=== PATIENT | female | born 1960 | race Caucasian/White ===

== ENCOUNTER 2019-03-22 07:47 | Emergency (ER) | payer OTHER ==
[~2019-03-22] VITALS: Ht 167.6 cm; Wt 86.2 kg
[~2019-03-22 07:47] MED LIST: CALMAGZIN PO; DIAZ5 PO; FLAX PO; MULVITMINE PO; NAPR500 PO; ZOLP5 PO
[2019-03-22] MEDS ORDERED: MELO7.5 PO (08:08)
[2019-03-22] MEDS ORDERED: CENTRUM SILVER1 EAC2 PO (08:08)
[2019-03-22] MEDS ORDERED: Oyster Shell C500 MG (08:08)
[2019-03-22] MEDS ORDERED: FLAX OIL1000 MG PO (08:09)
== END 2019-03-22 09:25 | disposition home or self-care (01) ==
LOC: ER 07:47
DX: S80.212A Abrasion, left knee, initial encounter (principal); Z88.4 Allergy status to anesthetic agent; Z79.899 Other long term (current) drug therapy; Z79.891 Long term (current) use of opiate analgesic; W01.10XA Fall on same level from slipping, tripping and stumbling with subsequent striking against unspecified object, initial encounter
CPT/HCPCS: 73564; 99283-25

== ENCOUNTER → 2023-01-11 | Outpatient (CLI) | payer OTHER ==
[~2023-01-11] MED LIST changes: +CENTRUM SILVER1 EAC2 PO; +FLAX OIL1000 MG PO; +MELO7.5 PO; +Oyster Shell C500 MG
[2023-01-11 10:48] LABS: BASOPHILS ABSOLUTE AUTO 0.06 K/mm3 (0.00-0.23); BASOPHILS PERCENT AUTO 1 % (0-2); EOSINOPHILS ABSOLUTE AUTO 0.14 K/mm3 (0.00-0.68); EOSINOPHILS PERCENT AUTO 2 % (0-6); Hematocrit 44.1 % (33.0-51.0); Hemoglobin 15.3 g/dL (11.5-16.0); IMMATURE GRAN ABSOLUTE AUTO 0.01 K/mm3 (0.00-0.10); IMMATURE GRAN PERCENT AUTO 0 % (0-1); LYMPHOCYTES PERCENT AUTO 31 % (21-46); MONOCYTES ABSOLUTE AUTO 0.49 K/mm3 (0.16-1.47); MONOCYTES PERCENT AUTO 8 % (4-13); Mean Corpuscular HGB 30.2 pg (26.0-34.0); Mean Corpuscular HGB Conc 34.7 g/dL (31.5-36.5); Mean Corpuscular Volume 87 fL (80-100); Mean Platelet Volume 11.2 fL (9.1-12.4); NEUTROPHILS ABSOLUTE AUTO 3.61 K/mm3 (1.96-9.15); NEUTROPHILS PERCENT AUTO 58 % (41-73); Platelet Count 224 K/mm3 (150-400); RDW Coefficient Variation 12.7 % (11.7-14.2); Red Blood Cell Count 5.07 M/mm3 (3.80-5.20); White Blood Cell Count 6.21 K/mm3 (4.00-11.30)
[2023-01-11 11:12] LABS: Albumin, Blood 4.4 g/dL (3.4-5.0); Albumin/Globulin Ratio 1.2 (0.8-1.8); Bilirubin, Total 0.6 mg/dL (0.1-1.0); Calcium, Blood 9.6 mg/dL (8.5-10.1); Creatinine, Blood 0.7 mg/dL (0.40-1.00); Globulin, Blood 3.7 g/dL (2.2-4.0); Potassium, Blood 3.7 mmol/L (3.5-5.5); Total Protein, Blood 8.1 g/dL (6.4-8.2)
== END | disposition home or self-care (01) ==
LOC: LAB SHORT 10:44 → LAB 10:44
PROVIDERS: Physician Assistant
DX: R07.9 Chest pain, unspecified (principal)
CPT/HCPCS: 80053; 83690; 84484; 85025

== ENCOUNTER 2023-11-18 07:32 | Day surgery (SDC) | payer BC ==
[~2023-11-18] VITALS: Ht 167.6 cm; Wt 72.8 kg
[~2023-11-18 07:32] MED LIST changes: +EPINEPhrine HCl 1 MG / ML 30ML Vial ONE; +Lactated Ringer's 1,000 ML IV ONE; +Ropivacaine 0.5% HCl/Pf 5 MG/ML 20ML VIAL ONE
[2023-11-18] MEDS ORDERED: NS 50 ML IV ONE (07:35)
[2023-11-18] MEDS ORDERED: CeFAZolin Sodium 2,000 MG VIAL ONE (07:35)
[2023-11-18] MEDS ORDERED: Lactated Ringer's 1,000 ML IV ONE ×2 (08:10→09:53)
[2023-11-18] MEDS ORDERED: Sugammadex Sodium 200 MG/2ML SDV (100 MG/ML) ONE (09:18)
[2023-11-18] MEDS ORDERED: Rocuronium Bromide 10 MG/ML 5ML Injection IV ONE (09:18)
[2023-11-18] MEDS ORDERED: Ondansetron HCl 2 MG / ML 2ML Vial ONE (09:18)
[2023-11-18] MEDS ORDERED: propofoL 20 ML IV ONE (09:18)
[2023-11-18] MEDS ORDERED: FentaNYL Citrate 50 MCG/ML 2 ML Injection ONE (09:18)
[2023-11-18] MEDS ORDERED: Dexamethasone Sod Phos 10 MG/ML 1ML VIAL ONE (09:18)
[2023-11-18] MEDS ORDERED: EPINEPhrine HCl 1 MG/ML 1ML Amp XX ONE (09:36)
--- NOTE | 2023-11-18 09:41 | NUR ---
11/18/23 0941 Jim Arteaga ROPIVACAINE 0.5% 30 ML MIXED & VERIFIED W/ EPI 0.15ML (1MG/ML) TO MAKE ROPIVACAINE 0.5% 1:200,000 FOR INJECTION AT [facility] BY DR WEST.
[2023-11-18 11:01] VITALS: BP 148/80
--- NOTE | 2023-11-18 11:35 | NUR ---
11/18/23 1135 SHANNON MCNEIL PT DECLINED ANY PAIN MEDICATION
== END 2023-11-18 11:28 | disposition home or self-care (01) ==
LOC: ORSCSDS 07:32
PROVIDERS: Podiatrist Foot & Ankle Surgery
PROC: 0QPH04Z Removal of Internal Fixation Device from Left Tibia, Open Approach (ICD-10-PCS; principal; 2023-11-18 08:45)
DX: M19.172 Post-traumatic osteoarthritis, left ankle and foot (principal); T84.84XA Pain due to internal orthopedic prosthetic devices, implants and grafts, initial encounter
CPT/HCPCS: J0171; J0690; J1100; J2405; J2704; J2795; J3010; J7120